=== PATIENT | female | born 1960 | race Caucasian/White ===

== ENCOUNTER 2016-05-08 11:11 | Emergency (ER) | payer OTHER ==
--- NOTE | ~2016-05-08 | CR72 ---
[facility] A Service of [facility] RADIOLOGY TEXT RESULTS PATIENT: VICKEY PARRISH LOCATION: [facility] : 56 UNIT #: [id number] AGE: [address]: Rachelle Cordova MD SEX: F ORDER DR: [id number] [place], [place] [address] [id number] MR#: [id number] Acc #: [id number] NAME: VICKEY PARRISH : 1960 SEX: F STUDY DATE/TIME: 05/08/2016 UNIT: [facility] ROOM: STUDY DESCRIPTION: CR Chest Single View Portable Attending Physician: Rachelle Cordova M.D. Ordering Physician: Rachelle Cordova M.D. Primary Care Physician: Ilia Coffey M.D. MEDICAL IMAGING REPORT This report is preliminary unless electronic signature is present EXAM Chest, portable, 05/08/2016, 1125 hours. HISTORY 55-year-old complaining of rib pain after CPR performed today for overdose at 0200 hours. History of ovarian cancer. COMPARISON STUDIES None FINDINGS Portable semierect chest film demonstrates normal heart size. The aorta is mildly tortuous. The hilar contours are normal. The lungs are well-expanded and clear. There is no pleural effusion or pneumothorax. No displaced rib fracture is seen. IMPRESSION No acute cardiopulmonary findings. There is no pleural effusion, pneumothorax, or displaced rib fractures seen. Dictated by... Rupal Tafoya M.D. THIS IS AN ELECTRONICALLY VERIFIED REPORT Rupal Tafoya M.D. at 05/09/2016 9:25 AM MILTON/allison TD: 05/08/2016 17:43 JOB #: [id number] MEDICAL IMAGING REPORT [facility] A Service of [facility] RADIOLOGY TEXT RESULTS PATIENT: VICKEY PARRISH LOCATION: [facility] : 56 UNIT #: [id number] AGE: [address]: Rachelle Cordova MD SEX: F ORDER DR: KATIE
== END 2016-05-08 14:12 | disposition home or self-care (01) ==
LOC: CED 11:11
DX: R07.89 Other chest pain (principal); F32.9 Major depressive disorder, single episode, unspecified; Z85.43 Personal history of malignant neoplasm of ovary; F17.210 Nicotine dependence, cigarettes, uncomplicated
CPT/HCPCS: 71010; 94640; 96372; 99283; J1885

== ENCOUNTER 2016-05-15 15:30 | Emergency (ER) | payer OTHER | END 2016-05-15 16:00 | disposition left against medical advice (07) | LOC: CED 15:30 | DX: Z53.21 Procedure and treatment not carried out due to patient leaving prior to being seen by health care provider (principal) ==

== ENCOUNTER 2016-06-09 21:40 | Emergency (ER) | payer OTHER ==
[2016-06-09 21:28] LABS: BASOPHIL% 0.5 % (0-2.5); DIFF IND NO; EOSINOPHIL# 0.1 X10e3 (0-0.7); EOSINOPHIL% 1.4 % (0.0-7.0); HEMATOCRIT 39.4 % (35.0-45.0); HEMOGLOBIN 13.3 gm/dL (12.0-16.0); LYMPHOCYTE% 19.2 % (17.0-45.0); MEAN CELL VOLUME 87.6 FL (83-96); MEAN CORPUSCULAR HEMOGLOBIN 29.6 PG (28-34); MEAN CORPUSCULAR HGB CONC 33.8 g/dL (30-36); MEAN PLATELET VOLUME 7.7 FL (6.5-11.5); MONOCYTE# 0.4 X10e3 (0-1.0); MONOCYTE% 7.9 % (3.0-12.0); NEUTROPHIL# 3.6 X10e3 (1.5-7.1); PLATELET COUNT 320 X10e3 (140-420); RED CELL DISTRIBUTION WIDTH 13.6 % (11.0-15.5); WHITE BLOOD COUNT 5.1 X10e3 (4.0-10.5)
[2016-06-09 21:54] LABS: ALBUMIN SERUM 4.3 g/dL (3.5-5.0); BILIRUBIN, DIRECT 0.1 mg/dL (0.0-0.2); BILIRUBIN,INDIRECT 0.8 mg/dL (0.0-0.9); BILIRUBIN,TOTAL 0.9 mg/dL (0.2-2.0); BUN/CREATININE RATIO 15.71; CALCIUM SERUM 9.6 mg/dL (8.4-10.2); CREATININE SERUM 0.7 mg/dL (0.6-1.4); GLOM FILT RATE Estimated 96.2 mL/min (>60); POTASSIUM 3.4 mmol/L (3.5-5.1); PROTEIN TOTAL SERUM 7.3 g/dL (6.0-8.3)
[2016-06-09 22:55] LABS: URINE SOURCE CLEAN CATCH
[2016-06-09 22:59] LABS: URINE APPEARANCE CLEAR; URINE BILIRUBIN NEG (NEG); URINE BLOOD NEG (NEG); URINE COLOR DK YELLOW; URINE GLUCOSE NEG (NEG); URINE KETONE TRACE (NEG); URINE LEUKOCYTE ESTERASE 1+ (NEG); URINE NITRATE NEG (NEG); URINE PH 5.5 (5-8); URINE PROTEIN NEG (NEG); URINE SPECIFIC GRAVITY 1.031 (1.003-1.035)
[2016-06-09 23:02] LABS: CULTURE INDICATED? YES; URBCS1 AUWI 0-2 /[HPF] (0-2); URINE BACTERIA AUWI NEG (NEGATIVE); URINE SQUAMOUS EPITHELIAL CELL OCC /[HPF]
== END 2016-06-09 23:50 | disposition home or self-care (01) ==
LOC: CED 21:40
PROVIDERS: Emergency Medicine
DX: K52.9 Noninfective gastroenteritis and colitis, unspecified (principal); J45.909 Unspecified asthma, uncomplicated; F32.9 Major depressive disorder, single episode, unspecified; Z88.0 Allergy status to penicillin; F17.200 Nicotine dependence, unspecified, uncomplicated
CPT/HCPCS: 36415; 80048; 80076; 81003; 82150; 83690; 85025; 87086; 96361; 96374; 96375; 99284; J1885; J2405